=== PATIENT | female | born 1995 | race Caucasian/White ===

== ENCOUNTER 2021-12-31 14:39 | Outpatient (CLI) | payer MEDICAID, SELFPAY | END 2021-12-31 14:40 | disposition home or self-care (01) | PROVIDERS: PCP Physician Assistant Medical; Visit Provider Dermatology | DX: L63.9 Alopecia areata, unspecified (principal) | CPT/HCPCS: 84443 ==

== ENCOUNTER 2022-03-09 11:18 | Outpatient (CLI) | payer MEDICAID, SELFPAY ==
[2022-03-11 18:01] LABS: Rheumatoid Factor <10 IU/mL (0-14)
[2022-03-12 01:44] LABS: Anti-Nuclear Ab(ANA)IgG ELISA None Detected (None Detected)
[2022-03-12 18:53] LABS: HLA-B27 Negative (Negative)
== END 2022-03-09 11:19 | disposition home or self-care (01) ==
PROVIDERS: PCP Physician Assistant Medical; Visit Provider Physician Assistant Medical
DX: L50.9 Urticaria, unspecified (principal)
CPT/HCPCS: 83516; 86039; 86431; 86812

== ENCOUNTER 2022-12-16 14:15 | Outpatient (CLI) | payer MEDICAID, SELFPAY ==
[2022-12-16 18:58] LABS: Chlamydia DNA Amplified* NOT DETECTED (No Detected); GC DNA Amplified* NOT DETECTED (No Detected)
== END 2022-12-16 14:16 | disposition home or self-care (01) ==
PROVIDERS: PCP Physician Assistant Medical; Visit Provider Registered Nurse
DX: Z34.91 Encounter for supervision of normal pregnancy, unspecified, first trimester (principal); Z3A.08 8 weeks gestation of pregnancy
CPT/HCPCS: 76801; 86592; 86703; 86762; 86787; 86803; 86850; 86900; 86901; 87086; 87340; 87491; 87591

== ENCOUNTER 2023-03-09 08:04 | Outpatient (CLI) | payer MEDICAID, SELFPAY ==
--- NOTE | 2023-03-09 08:15 | CRLHL7_ITS ---
For Patients: As a result of the Century Cures Act, medical imaging exams and procedure reports are released immediately into your electronic medical record. You may view this report before your referring provider. If you have questions, please contact your health care provider. INDICATION: 2nd trimester anatomical survey. TECHNIQUE: Ultrasound OB pelvis transabdominal. Real-time alvares-scale imaging of the fetus was performed as well as color Doppler and spectral Doppler analysis of the umbilical artery. COMPARISON: None. FINDINGS: There is a single living intrauterine gestation. heart activity: Regular cardiac rate of 144 beats per minute. Orientation: Cephalic. Placenta: Anterior. No previa. Amniotic fluid volume: Normal. Deepest pocket 5 cm. Cervix: 3.2 cm. Biometry: Biparietal diameter: 20 weeks 0 days. Head circumference: 20 weeks 1 day. Abdominal circumference: 20 weeks 1 day. Femoral length: 20 weeks 2 days. The composite ultrasound gestational age is calculated at 20 weeks 3 days with an estimated sonographic due date of July 24, 2023. The weight is estimated at 337 grams, the 64th percentile. Anatomical Survey: 4 chamber heart: Visualized. Stomach: Visualized. Kidneys: Visualized. Bladder: Visualized. Spine: Visualized. Sacrum: Visualized. 4 extremities: Visualized. Cord insertion: Visualized. 3V cord: Visualized. Face: Visualized. Nose: Visualized. Lips: Visualized. Cerebellum: Visualized. Cisterna Magna: Visualized. Lateral ventricles: Visualized. IMPRESSION: 1. Single viable intrauterine . 2. No intrinsic abnormalities noted on anatomic survey. Dictated by Chivo Isbell MD @ 03/10/2023 2:39:41 PM (Electronically Signed)
== END 2023-03-09 08:05 | disposition home or self-care (01) ==
LOC: US 08:05
PROVIDERS: PCP Physician Assistant Medical; Visit Provider Registered Nurse
DX: Z34.92 Encounter for supervision of normal pregnancy, unspecified, second trimester (principal)
CPT/HCPCS: 76805

== ENCOUNTER 2023-05-20 08:01 | Outpatient (CLI) | payer MEDICAID, SELFPAY | END 2023-05-20 08:02 | disposition home or self-care (01) | PROVIDERS: PCP Physician Assistant Medical; Visit Provider Physician Assistant | DX: Z34.93 Encounter for supervision of normal pregnancy, unspecified, third trimester (principal); Z3A.30 30 weeks gestation of pregnancy | CPT/HCPCS: 82951; 82952 ==

== ENCOUNTER 2023-06-30 10:33 | Outpatient (CLI) | payer MEDICAID, SELFPAY ==
[2023-07-01 10:58] LABS: Strep B DNA Probe Negative (Negative)
[2023-07-01 11:10] LABS: Strep B Susceptibility Needed? No
== END 2023-06-30 10:34 | disposition home or self-care (01) ==
LOC: FRMREF 10:34
PROVIDERS: PCP Physician Assistant Medical; Visit Provider Obstetrics & Gynecology
DX: Z34.93 Encounter for supervision of normal pregnancy, unspecified, third trimester (principal); Z3A.36 36 weeks gestation of pregnancy
CPT/HCPCS: 87081; 87653

== ENCOUNTER 2023-07-28 16:38 | Inpatient (IN) | payer MEDICAID, SELFPAY ==
[2023-07-28] VITALS (61 sets, daily range): BP systolic 76–170; BP diastolic 44–90; PULSE 70–134; TEMP 36.4–37.1; O2SAT 83–100; BMI 34.3
[2023-07-28] MEDS: LACTATED RINGERS 1000 ML 1,000 ML 125 ML IV (17:53)
[2023-07-28] MEDS: OXYTOCIN 30 unit/500 ML in NS 30 UNIT/500 ML BAG IVPB (17:54)
[2023-07-28 19:36] LABS: Hematocrit 37.4 % (33.0-51.0); Hemoglobin* 12.4 gm/dL (12.0-16.0); Mean Corpuscular HGB Conc 33 gm/dL (32-36); Mean Corpuscular Hemoglobin 29 pg (26-34); Mean Corpuscular Volume 88 fL (80-100); Platelet Count* 190 K/uL (140-440); Red Blood Count 4.27 m/uL (4.00-5.20); White Blood Count* 12.48 K/uL (4.50-11.00)
[2023-07-28 19:38] LABS: Slide Review Reflex No
[2023-07-28] MEDS: SODIUM CHLORIDE 0.9 % (FLUSH) 10 ML SYRINGE IVF (19:42)
[2023-07-28] MEDS: LABETALOL HCL 5 MG/ML inj IVP (19:44)
[2023-07-28 19:51] LABS: Alanine Aminotransferase* 26 U/L (4-35); Aspartate Amino Transferase* 45 U/L (12-35); Blood Urea Nitrogen* 9 mg/dL (5-24); Creatinine* 0.5 mg/dL (0.5-1.5); Est. Creatinine Clearance* 138.57; Estimated Glomerular Filt Rate 131 ml/min
[2023-07-28] MEDS: MAGNESIUM IV 4 GM/100 ML PIGGYBACK IVPB (20:02)
--- NOTE | 2023-07-28 20:18 | P.LDBA_ITS ---
Subjective History of Present Illness Date Seen: 07/28/23 Narrative: Patient is being admitted to Labor and Delivery for elective IOL. She is a 28 year old at 40 0/7 weeks gestation. Her full history and physical was dictated by Candida Mcmanus on 07/08/23. Please see this for details. Patient had planned elective IOL that unfortunately had to be bumped a couple of times earlier this week due to staffing at labor and delivery. Patient was admitted this afternoon for elective IOL. On her last clinic visit she had slightly higher elevated BP that did not met criteria for GHTN, this was the first time she had elevated blood pressures in her . Upon arrival to labor and delivery blood pressures slightly higher but again not diagnostic. At this moment, patient with severely elevated blood pressures that persisted after adequate monitoring and needed to be treated with IV Labetalol. Patient denied [employer] irritability symptoms and HELLP labs are currently in process. Specific Issues/Plans G 3 P 2001 : [place]. 2 boys at home: Juan M Brooks MaterniT 21 neg, girl! AFP: Patient declines. Interested in 39 wk elective IOL 1. (Distant) Family history of [place] Syndrome in mom's cousin's child. Declines referral to genetic counselor. 2. Varicella nonimmune. Recommend vaccination . 3. 1 hour GTT: 140. Discussed and patient opted for 3 hour GTT: all normal COVID: Not vaccinated. Recommended. Flu shot: 01/11/23 Tdap:05/20/23 OB - Problem Based A/P Additional Plan (1) Gestational hypertension: Problem details: Severe GHTN, diagnosed intrapartum Status: Acute (2) : Status: Acute Plan 1. IOL: originally elective, patient now meets criteria for severe gestational hypertension-medically indicated. IV Oxytocin ongoing, plan to AROM LESLEY. 2. Severe gestational hypertension: By blood pressure criteria, received one dose of labetalol 20mg, will continue close monitoring, will treat severely elevated blood pressures as needed. Magnesium sulfate infusion has started, will continue throughout labor process and 24 hours post . HELLP labs every 6 hours. Close monitoring of I/O, magnesium toxicity. 3. Continuous monitoring. 4. Patient plans to get epidural. 5. GBS negative, no antibiotics indicated. OB Exam Physical Exam Vital signs: Temp Pulse BP Pulse Ox 98.8 F 90 129/84 100 07/28/23 17:00 07/28/23 20:13 07/28/23 20:13 07/28/23 20:15 Detailed Labor and Delivery Exam Patient Gravid: Yes Dilation (cm): 2 Effacement (%): 75 Consistency: soft Contraction Frequency: Irregular Tachysystole: No Contraction intensity: Mild Fetus (Single) Station: -2 Amniotic Membrane Status: intact Heart Rate Baseline: 135 Monitor Accelerations: Present Monitor Decelerations: None [employer] Variability: Moderate (6-25)
[2023-07-28] MEDS: MAGNESIUM Infusion 40 GM/1,000 ML IV.SOLN IVPB (20:35)
[2023-07-28 20:49] LABS: Total Protein Urine 17 mg/dL
[2023-07-28 20:50] LABS: Creatinine Urine 21.2 mg/dL
[2023-07-28] MEDS: ROPIVACAINE 0.2% 100 ml 100 ML 12 MG EPIDURAL (22:46)
--- NOTE | 2023-07-28 22:52 | P.ANBPRC_ITS ---
[facility] Medical History Raynaud's phenomenon ?I73.00 - Raynaud's syndrome without gangrene (ICD-10) Normal spontaneous vaginal delivery ?O80 - Encounter for full-term uncomplicated delivery (ICD-10) No active medical problems Surgical History History of third molar tooth extraction ?K08.409 - Partial loss of teeth, unspecified cause, unspecified class (ICD- 10) Family History Family/Other Multiple sclerosis Family/Other Seizure disorder Paternal Grandfather Pancreatic cancer Maternal Grandfather Polymyalgia rheumatica Social History Narrative: , 2 kids, realtor. Non smoker What is your current living situation?: I presently have a place to live Problems where you live: no known problems In the past 12 months, utilities in danger of being shut off: no In past 12 months, lack of transportation kept you from medical appts, meetings, work, or getting things needed for daily living: no In the past 12 mos, have been you worried that your food would run out before you had money to buy more?: never true In the past 12 mos, the food you bought just didn't last and you didn't have money to buy more?: never true Smoking Status: Never smoker How often does anyone, including family, friends and others, physically hurt you : never How often does anyone, including family, friends and others, insult or talk down to you: never How often does anyone, including family, friends and others, threaten you with harm: never How often does anyone, including family, friends and others, scream or curse at you: never Little interest or pleasure in doing things: not at all Feeling down, depressed, or hopeless: not at all Meds Home Medications and Allergies Home Medications Medication Instructions Recorded Confirmed Type cetirizine 10 mg tablet 10 mg PO .Daily as needed PRN 03/09/22 07/28/23 History Allergies Allergy/AdvReac Type Severity Reaction Status Date / Time amoxicillin Allergy Mild Rash/hives Verified 07/21/23 08:56 cephalexin Allergy Mild Rash/hives Verified 07/21/23 08:56 Results Labs Labs: Laboratory Results - last 24 hr 07/28/23 07/28/23 19:15 20:09 WBC 12.48 H RBC 4.27 Hgb 12.4 Hct 37.4 MCV 88 MCH 29 MCHC 33 Plt Count 190 BUN 9 Creatinine 0.5 Estimated Creat Clear 138.57 Estimated GFR 131 AST 45 H ALT 26 Urine Creatinine 21.2 Protein/Creatinin Ratio 0.80 H Urine Total Protein 17 Blood Type A Positive Antibody Screen NEGATIVE Vital Signs Vital Signs: Last Vital Signs Temp 98.2 F 07/28/23 21:15 Pulse 100 07/28/23 22:51 BP 115/55 L 07/28/23 22:51 Pulse Ox 100 07/28/23 22:19 Weight: 87.952 kg Height: 160.02 cm Anesthesia Procedures Epidural Insertion Patient Location: OB Start Time: 09:45 Stop Time: 10:45 Start Date: 07/28/23 Stop Date: 07/28/23 Reason for Block: procedure for pain Patient Position: sitting Performed By: Cassy Ortega Preanesthetic Checklist: IV checked, risks and benefits discussed, monitors and equipment checked, timeout performed and anesthesia consent Prep: chlorhexidine gluconate Monitoring: blood pressure monitoring, continuous pulse oximetry and heart rate Approach: midline Vertebral Space: lumbar (1-5) Epidural Technique: GLORIA saline Needle Type: Tuohy needle Injection Technique: continuous catheter Needle gauge: 17 Needle Length (cm): 10 cm Needle Insertion Depth (cm): 6 Catheter Gauge: 19 Catheter Type: multi-orifice Catheter at skin depth (cm): 12 Test Dose Result: negative and lidocaine 1.5% with epinephrine 1 to 200,000 Events: other (Gave 5ml of Bupivacaine 0.25%, patient reported adequate pain relief.)
[2023-07-28] MEDS: PHENYLEPHRINE 100 MCG/ML SYRINGE IVP (23:12)
[2023-07-28] MEDS: LACTATED RINGERS 1000 ML 1,000 ML 925 ML IV (23:40)
[2023-07-29] VITALS (100 sets, daily range): BP systolic 95–134; BP diastolic 55–84; PULSE 69–113; RESP 12–18; TEMP 36.4–36.8; O2SAT 96–100
[2023-07-29 01:09] LABS: Hematocrit 34.3 % (33.0-51.0); Hemoglobin* 11.4 gm/dL (12.0-16.0); Mean Corpuscular HGB Conc 33 gm/dL (32-36); Mean Corpuscular Hemoglobin 29 pg (26-34); Mean Corpuscular Volume 88 fL (80-100); Platelet Count* 184 K/uL (140-440); White Blood Count* 14.05 K/uL (4.50-11.00)
[2023-07-29 01:33] LABS: Slide Review Reflex No
[2023-07-29 01:53] LABS: Creatinine* 0.4 mg/dL (0.5-1.5); Est. Creatinine Clearance* 173.21; Estimated Glomerular Filt Rate 138 ml/min
[2023-07-29 01:54] LABS: Alanine Aminotransferase* 22 U/L (4-35); Aspartate Amino Transferase* 38 U/L (12-35); Blood Urea Nitrogen* 7 mg/dL (5-24); Magnesium* 3.9 mg/dL (1.5-2.6)
[2023-07-29] MEDS: LACTATED RINGERS 1000 ML 1,000 ML 75 ML IV (02:23)
--- NOTE | 2023-07-29 05:21 | P.OBPN_ITS ---
Subjective Date Seen: 07/29/23 Narrative: Okay, tired Objective Vital Signs: Last Vital Signs Temp 98.3 F 07/29/23 03:07 Pulse 112 H 07/29/23 05:11 BP 109/63 07/29/23 05:11 Pulse Ox 99 07/29/23 03:56 Pelvic Exam Dilation (cm): 9-10 Effacement (%): 90 Station: 0 Contractions Monitor mode: External Contraction pattern: Regular Contraction intensity: Strong/Firm Pitocin Rate (mU/min): 21 Assessment Assessment: induction ongoing Station: 0 Amniotic Membrane Status: AROM Status: Category l Heart Rate Baseline: 140 [facility] Variability: Moderate (6-25) Monitor Accelerations: Present Monitor Decelerations: None Labor Progress: Labor was progressing well until second stage. AROM was completed at around 11pm last night. I checked her at around 1 am and she was found 7cm, then again at 2:30am and she was 8-9 very stretchy cervix. Patient was experiencing lots of rectal pressure and at around 4am cervix was identified as a rim mostly at her left side, she has great pushing efforts and it felt like I was able to reduce cervix but when Farzaneh discontinued pushing efforts cervix would slip right back. We attempted pushing for about 45 minutes, oxytocin increased during this process, regular and strong uterine contractions palpated, maternal pushing efforts effective. I had been suspecting asynclitism, bedside US was then performed and baby found LOT. I explained findings to Farzaneh and recommended an attempt at manual rotation, Farzaneh verbally consented and I was able to introduce my entire hand and attempted to lift vertex a bit from the pelvis and do a counterclockwise rotation, NO movement. We then attempted to push on her left side, NO additional movement. At this point I have explained to Farzaneh and family, that I am concerned about asynclitism, discussed that sometimes babies are malpositioned and they are harder to push out and it takes us longer to do so as well. I explained that in theory she could still push for 2 more hours and comply with guidelines. Medically she has been stable and baby has been tolerating IOL process very well as well. Farzaneh is tired and asks for my opinion, at this time I recommend a delivery at this time. At this time, both she and baby are stable, this could be very different in 2 hours and I have attempted to control all of the factors (contraction frequency and intensity, patient has a proven pelvis, manual rotation, pushing in different positions) and baby does not move at all. Patient prefers to proceed with delivery at this time. We reviewed how procedure is performed, risks of surgery such as bleeding and needing a blood transfusion, Farzaneh accepts blood transfusions, risk of infection, damage to nearby organs, blood clots. Discussed interventions to decrease risks such as antibiotics, SCDs. Discussed how care differs from a vaginal delivery, usual recovery. Reviewed with her that we would plan to keep her inpatient for at least 3 days. Reviewed continuing magnesium sulfate infusion for 24 hours after delivery and to complete 24 hours of observation at least, after d/c of this medication. Informed consent reviewed and signed by patient. Plan Plan: delivery due to arrest of descent, ROT position.
[2023-07-29] MEDS: ROPIVACAINE 0.2% 100 ml 100 ML 12 MG EPIDURAL (05:26)
[2023-07-29] MEDS: AZITHROMYCIN 500 MG in 0.9 % SODIUM CHLORIDE 250 ml 250 ML 255 MG IVPB (05:41)
[2023-07-29] MEDS: CEFAZOLIN 2 GM INJ IVP (06:25)
[2023-07-29] MEDS: miSOPROStoL 800 MCG/4 TABLET PR (06:47)
[2023-07-29] MEDS: LACTATED RINGERS 1000 ML 1,000 ML 50 ML IV (07:32)
--- NOTE | 2023-07-29 07:44 | PM.OBPRCCS ---
Procedure Date of procedure: 07/29/23 Pre-op diagnosis: Arrest of descent, preeclampsia with severe features Post-op diagnosis: same (same, hemorrhage) Procedure Done: Global Will [facility] bill your pro fee for this procedure?: Yes Blood Loss Measurement Type: QBL (6661) Bakri Used: No IV fluids (mL): 2,200 Urine Output Comment: Concentrated Surgeon: Candida Canas MD Anesthesia Type: Epidural Findings: FINDINGS: Live-born female , LOT presentation, Apgars 8 and 9 at 1 and 5 minutes respectively. Two nuchal cords. weight 8 lb 5 oz. Hysterotomy extension towards the right lower uterine segment of about 3cm, broad ligament intact. Procedure Name: Primary Low Transverse Section Procedure Description: PROCEDURE: After obtaining informed consent, the patient was taken to the operating room where epidural anesthesia was obtained and found to be adequate. She was prepared and draped in the normal sterile fashion in the dorsal supine position with a leftward tilt. A Pfannenstiel skin incision was made with a scalpel about 2 cm above symphysis pubic bone, 10-12 cm in length. This incision was carried down to the underlying layer of fascia with the Bovie and scalpel. The fascia was incised in the midline and the incision extended laterally. The rectus muscles were then in the midline. Bladder flap performed with Metzenbaum scissors. The Ray O retractor was then placed into the incision. The lower uterine segment was then incised in a transverse fashion with the scalpel. Upon entry into the uterus, clear amniotic fluid was noted. The uterine incision was extended cephalo caudally with blunt finger fractionation. The 's head was delivered atraumatically, followed by the remainder of the 's body. The nose and mouth were suctioned with the bulb suction. The cord was doubly clamped and cut, and the infant was handed off the field to [facility] for evaluation. The placenta was delivered spontaneously with umbilical cord traction and fundal massage. The uterus was cleared of all clots and debris. Multiple ring forceps placed to aid in hemostasis from bleeding right uterine artery. The uterine incision was reapproximated in a running locking fashion with a 0 Vicryl suture. A 2nd layer of the same suture was used to imbricate in horizontal fashion. Bleeding vessels managed with 0 Vicryl. Uterine atony treated as well with IV Oxytocin, rectal Cytotec 800mcg and 1 dose of IM Hemabate. The gutters were inspected and cleared of blood clot. All instruments and retractors were removed. Peritoneum approximated with Vicryl 3-0 in a continuous fashion. The subfascial tissues were carefully inspected and hemostasis assured. The fascia was reapproximated in a running fashion with a looped 0 Vicryl suture. The subcutaneous tissues were inspected and hemostasis was assured. The subcutaneous fat layer was reapproximated with interrupted sutures of 3-0 Vicryl. The skin was closed in a subcuticular fashion with 4-0 Monocryl. LiquiBand and dressing were applied. The patient tolerated the procedure well. Sponge, lap, needle, and instrument counts were reported as correct x2. The patient was taken to the recovery room, awake, and in stable condition. She did receive 2 grams of IV Ancef and 500mg Azithromycin preoperatively. Patient also received 1g of TXA after umbilical cord clamp. Complications: hemorrhage due to hysterotomy extension and uterine atony. Pathology: specimen obtained, sent to pathology (Placenta) Surgery Debrief Performed: Yes Condition: stable Disposition: floor Infant total score - 1 minute: 8 total score - 5 minute: 9
[2023-07-29] MEDS: LACTATED RINGERS 1000 ML 1,000 ML 125 ML IV ×2 (07:45→14:20)
--- NOTE | 2023-07-29 08:11 | W.PM.NB ---
Nerve Block Nerve Block Time Seen by Provider: 07:55 Date Seen: 06/05/23 Type of block requested by surgeon for post-operative analgesia: TAP Side: bilateral Time out performed: Yes Verification of patient name: Yes Verification of date of : Yes Site marking: site marked Name of person performing procedure: Nikita Cho Continuous monitoring Was continuous monitoring of O2 sat, B/P, property assessment monitor, recorded every 15 minutes?: Yes Procedure Checklist: sterile prep, needles and gloves Ultrasound guided. Images saved: Yes Medications given in 5ml increments after negative aspiration: Marcaine %: 0.25 mL: 30 Needle gauge: 20 and Exparel mL: 10 Needle gauge: 20 Patient tolerated procedure well: Yes Block Charges Block Charge (with Pro Fee): TAP Bilateral Use of Ultrasound Machine for Block: Yes- US Guidance/pain block
--- NOTE | 2023-07-29 08:13 | W.ANESCHARGE ---
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
[2023-07-29] MEDS: LOPERAMIDE HCL 2 MG CAPSULE 4 MG PO (08:15)
[2023-07-29 09:47] LABS: Hematocrit 35.3 % (33.0-51.0); Hemoglobin* 11.7 gm/dL (12.0-16.0); Mean Corpuscular HGB Conc 33 gm/dL (32-36); Mean Corpuscular Hemoglobin 29 pg (26-34); Mean Corpuscular Volume 88 fL (80-100); Platelet Count* 200 K/uL (140-440); Red Blood Count 4.01 m/uL (4.00-5.20); White Blood Count* 24.31 K/uL (4.50-11.00)
[2023-07-29 09:59] LABS: Alanine Aminotransferase* 22 U/L (4-35); Aspartate Amino Transferase* 40 U/L (12-35); Blood Urea Nitrogen* 5 mg/dL (5-24); Creatinine* 0.4 mg/dL (0.5-1.5); Est. Creatinine Clearance* 173.21; Estimated Glomerular Filt Rate 138 ml/min
[2023-07-29 10:04] LABS: Slide Review Reflex No
[2023-07-29] MEDS: KETOROLAC 30 MG/ML inj IVP ×2 (13:27→19:18)
[2023-07-29] MEDS: ACETAMINOPHEN 500 MG TABLET 1000 MG PO ×2 (13:27→19:17)
[2023-07-29] MEDS: MAGNESIUM Infusion 40 GM/1,000 ML IV.SOLN IVPB (14:36)
[2023-07-29 15:32] LABS: Hematocrit 29.2 % (33.0-51.0); Hemoglobin* 9.8 gm/dL (12.0-16.0); Mean Corpuscular HGB Conc 34 gm/dL (32-36); Mean Corpuscular Hemoglobin 30 pg (26-34); Mean Corpuscular Volume 88 fL (80-100); Platelet Count* 186 K/uL (140-440); Red Blood Count 3.32 m/uL (4.00-5.20); White Blood Count* 20.45 K/uL (4.50-11.00)
[2023-07-29 15:36] LABS: Slide Review Reflex No
[2023-07-29 16:27] LABS: Aspartate Amino Transferase* 32 U/L (12-35); Creatinine* 0.4 mg/dL (0.5-1.5); Est. Creatinine Clearance* 173.21; Estimated Glomerular Filt Rate 138 ml/min
[2023-07-29 16:28] LABS: Alanine Aminotransferase* 20 U/L (4-35); Blood Urea Nitrogen* 3 mg/dL (5-24)
[2023-07-29 21:38] LABS: Hematocrit 28.2 % (33.0-51.0); Hemoglobin* 9.3 gm/dL (12.0-16.0); Mean Corpuscular HGB Conc 33 gm/dL (32-36); Mean Corpuscular Hemoglobin 29 pg (26-34); Mean Corpuscular Volume 88 fL (80-100); Platelet Count* 184 K/uL (140-440); White Blood Count* 18.22 K/uL (4.50-11.00)
[2023-07-29 21:43] LABS: Slide Review Reflex No
[2023-07-29 22:09] LABS: Alanine Aminotransferase* 19 U/L (4-35); Aspartate Amino Transferase* 33 U/L (12-35); Blood Urea Nitrogen* 4 mg/dL (5-24); Creatinine* 0.5 mg/dL (0.5-1.5); Est. Creatinine Clearance* 138.57; Estimated Glomerular Filt Rate 131 ml/min
[2023-07-29 22:17] LABS: Magnesium* 5.4 mg/dL (1.5-2.6)
[2023-07-30] VITALS (15 sets, daily range): BP systolic 101–131; BP diastolic 64–84; PULSE 71–81; RESP 16–18; TEMP 36.3–36.7; O2SAT 96–100
[2023-07-30] MEDS: KETOROLAC 30 MG/ML inj IVP ×3 (01:33→13:15)
[2023-07-30] MEDS: ACETAMINOPHEN 500 MG TABLET 1000 MG PO ×3 (01:33→14:00)
[2023-07-30] MEDS: SODIUM CHLORIDE 0.9 % (FLUSH) 10 ML SYRINGE IVF ×2 (01:35→20:17)
[2023-07-30 03:28] LABS: Hematocrit 27.3 % (33.0-51.0); Hemoglobin* 9.1 gm/dL (12.0-16.0); Mean Corpuscular HGB Conc 33 gm/dL (32-36); Mean Corpuscular Hemoglobin 30 pg (26-34); Mean Corpuscular Volume 90 fL (80-100); Platelet Count* 184 K/uL (140-440); Red Blood Count 3.05 m/uL (4.00-5.20); White Blood Count* 16.31 K/uL (4.50-11.00)
[2023-07-30 03:29] LABS: Slide Review Reflex No
[2023-07-30 03:41] LABS: Alanine Aminotransferase* 18 U/L (4-35); Aspartate Amino Transferase* 35 U/L (12-35); Blood Urea Nitrogen* 3 mg/dL (5-24); Creatinine* 0.5 mg/dL (0.5-1.5); Est. Creatinine Clearance* 138.57; Estimated Glomerular Filt Rate 131 ml/min
[2023-07-30 03:50] LABS: Magnesium* 5.6 mg/dL (1.5-2.6)
[2023-07-30] MEDS: DOCUSATE SODIUM 100 MG CAPSULE PO (08:14)
--- NOTE | 2023-07-30 08:44 | P.OBPN_ITS ---
OB - PN:Subj Subjective Time Seen by Provider: 08:30 Date Seen: 07/30/23 Patient comments OB post-: no complaints, pain well controlled and tolerating diet [place] infant status: bottle and doing well Narrative: The patient feels well this morning. The magnesium sulfate infusion was discontinued at 6:30 a.m. Her pain is well controlled on Toradol and Tylenol. She still has little numbness that wraps around to her left buttocks, which she attributes to the TAP block. She is looking forward to doing some walking today. OB - PN: Obj Exam Physical Exam: Vital signs: Temp Pulse Resp BP Pulse Ox O2 Del Method 97.3 F L 81 18 115/78 99 Room Air 07/30/23 07:53 07/30/23 07:53 07/30/23 07:53 07/30/23 07:53 07/30/23 07:53 07/30/23 07:53 Constitutional: Constitutional: no acute distress Routine HEENT Exam: Head: Present normal inspection Routine Respiratory Exam: Comments: Normal respiratory effort. Routine Abdominal Exam: Abdominal: Present soft; Absent tenderness Fundus: Present firm Routine Extremities Exam: Extremities: Present pedal edema (trace); Absent calf tenderness Detailed Lower Extremity Exam: Hip: bilateral: normal inspection Routine Neurological Exam: Neurological: Present oriented X3 Routine Psychiatric Exam: Psychiatric: Present normal affect Wound Management: Examination: Present clean, dry and intact; Absent erythematous or tenderness Urinary Catheter Management: Urethral: Cath placed during this visit: yes, but has since been removed by the nurse Reason for continuing: decision to DC catheter Removal date: 07/30/23 Removal time: 06:00 OB - PN: Obj Data Labs Labs: Laboratory Results - last 24 hr 07/29/23 07/29/23 07/29/23 09:30 15:17 21:25 WBC 24.31 H 20.45 H 18.22 H RBC 4.01 3.32 L 3.20 L Hgb 11.7 L 9.8 L 9.3 L Hct 35.3 29.2 L 28.2 L MCV 88 88 88 MCH 29 30 29 MCHC 33 34 33 Plt Count 200 186 184 BUN 5 3 L 4 L Creatinine 0.4 L 0.4 L 0.5 Estimated Creat Clear 173.21 173.21 138.57 Estimated GFR 138 138 131 Magnesium 5.0 H* 5.4 H* AST 40 H 32 33 ALT 22 20 19 04/19/24 03:25 WBC 16.31 H RBC 3.05 L Hgb 9.1 L Hct 27.3 L MCV 90 MCH 30 MCHC 33 Plt Count 184 BUN 3 L Creatinine 0.5 Estimated Creat Clear 138.57 Estimated GFR 131 Magnesium 5.6 H* AST 35 ALT 18 OB - PN: A/P Delivery Assessment and Plan (1) Gestational hypertension: Problem details: Severe GHTN, diagnosed intrapartum Status: Acute Assessment and Plan: Continue to monitor BP. Discontinue serial labs. Plan day: 1 Plan: routine care
[2023-07-30] MEDS: OXYCODONE 5 MG TABLET PO (12:30)
[2023-07-30 17:17] LABS: Rapid Plasma Reagin (RPR) Non Reactive (Non Reactive)
[2023-07-30] MEDS: IBUPROFEN 600 MG TABLET PO (20:16)
[2023-07-31] MEDS: ACETAMINOPHEN 500 MG TABLET 1000 MG PO ×2 (00:48→06:18)
[2023-07-31 01:02] VITALS: BP 111/74; PULSE 74; RESP 16
[2023-07-31] MEDS: IBUPROFEN 600 MG TABLET PO ×2 (02:47→11:53)
[2023-07-31 04:45] VITALS: BP 122/77; PULSE 70; RESP 16; TEMP 36.6; O2SAT 100
[2023-07-31 08:36] VITALS: BP 121/78; PULSE 81; RESP 16; TEMP 36.8; O2SAT 99
[2023-07-31] MEDS: DOCUSATE SODIUM 100 MG CAPSULE PO (08:45)
--- NOTE | 2023-07-31 12:58 | P.DS_ITS ---
DS: Providers Provider Time Seen by Provider: 09:00 Date Seen: 07/31/23 Date of admission: 07/28/23 16:38 Primary care physician: Paula Huang PA-C Admitting Clinician: Carol Canas MD Attending Physician on discharge: Carol Canas MD Date of Discharge: 07/31/23 DS: Diagnosis Discharge Diagnosis (1) Anxiousness: Status: Acute (2) Severe pre-eclampsia: Status: Acute (3) Acute blood loss anemia: Status: Acute Exam Narrative: Exam Narrative: Physical exam: General: No acute distress Psych: Alert and oriented x4, full affect HEENT: Normocephalic, atraumatic Neck: No cervical adenopathy, no thyromegaly Heart: Regular rate and rhythm, no murmur rub or gallop Lungs: Clear to auscultation bilaterally Abdomen: Normoactive bowel sounds, soft, no tenderness, rebound, or guarding Incision: Appropriately tender to palpation. Clean, dry, and intact. No erythema, induration, or abnormal discharge/breakdown Skin: No lesions or rashes Lower extremities: No edema or erythema Pelvic exam: Scant blood on pad Const: Vital Signs, click to edit/add: Vital Signs - 24 hr 07/30/23 15:21 07/30/23 20:16 07/30/23 20:23 Temperature 98.1 F 97.8 F 97.8 F Pulse Rate [Pulse Oximeter] 71 75 Respiratory Rate 16 16 Blood Pressure [Ri ght Arm] 131/80 131/84 Pulse Oximetry 100 100 Oxygen Delivery Me thod Room Air Room Air 07/31/23 01:02 07/31/23 04:45 07/31/23 08:36 Temperature 97.9 F 98.3 F Pulse Rate [Pulse Oximeter] 74 70 81 Respiratory Rate 16 16 16 Blood Pressure [Ri ght Arm] 111/74 122/77 121/78 Pulse Oximetry 100 99 Oxygen Delivery Me thod Room Air Room Air OB - DS: Summary Hospital Course Hospital Course: The patient is a 28 year old G 3 P 2002 at 40.0 weeks gestation that was admit marco a to the Center on 07/28/23 for elective induction. Her intrapartum course was complicated by severe preeclampsia. She had a primary delivery due to arrest of descent. delivery was complicated by hemorrhage due to hysterotomy extension and uterine atony. She delivered a viable female infant. She is . the patient has done well. Overnight patient had no complaints. Her pain is well controlled on oral pain medications. She is tolerating a regular diet. She has passed flatus. She is ambulating without difficulty. Lochia is scant. She is urinating without de jesus. Patient denies chest pain, SOB, n/v, headache, RUQ pain, vision changes, dizziness. Postoperative/post delivery Review: - Admitted for: Elective induction of labor at 40 weeks - Surgical procedure: Primary delivery due to arrest of descent - Skin incision: Pfannenstiel - Closure: Suture - Quantitative blood loss: 1159 mL - Intraoperative Complications: hemorrhage due to hysterotomy extension and uterine atony Pre-Eclampsia with severe features - Based on severe ranging BP requiring IV antihypertensive - BPs overnight: 100-130/60-80s - Symptoms: Asymptomatic - Magnesium: s/p 24 hours of magnesium sulfate - IV antihypertensives: currently unindicated - Pre-eclampsia labs on 07/30/23: Hgb 9.1 Plt 184 Cr 0.5 ALT 35 AST 18 Acute blood loss anemia - Urine output: adequate - Preop/pre delivery H/H: 12.4/190 - Postop/post delivery H/H: 9.1/184 Postoperative care: - Diet: Advance as tolerated - Fluid: Encourage oral intake - Activity: Encourage ambulation and incentive spirometry - Pain: Acetaminophen, Ibuprofen, and oxycodone - DVT prophylaxis: SCDs and TEDs when not ambulating. Discharge Planning - Follow up in 5-7 days for incision check and/or staple removal/ BP check in clinic - Follow Up: follow-up at 2 weeks and 6 weeks in clinic Dispo: Patient is POD#2. Need the following milestones: none. Anticipate discharge POD#2. Peripartum Data Procedures: Procedures Operation Date: 07/29/23 06:15 Actual Procedure Side Surgeon p Primary Section Not Applicable Carol Canas MD Infant Gender: Female Time Spent with Patient Time attestation: Total time spent providing and/or coordinating discharge services: Discharge Plan Discharge Disposition: Home, Self-Care Date of Admission: 07/28/23 16:38 Attending Provider on Discharge: Lala Alfredo Primary Care Provider: Lybarger,Paula J Condition: Stable Anticipated Discharge Date/Time: 07/31/23 10:16 Discharge Medications: New acetaminophen 500 mg Tablet 1,000 mg PO Q6H PRN (Reason: pain/fever) 30 Days Qty: 60 0RF docusate sodium 100 mg Capsule 100 mg PO DAILY 30 Days Qty: 30 0RF ibuprofen 600 mg Tablet 600 mg PO Q6H PRN (Reason: Pain) 30 Days Qty: 60 0RF Lanolin (HPA) 100 % Cream 1 applic topical Q1H PRNQty: 21 0RF Poly-Iron 150 Forte 150-25-1 mg-mcg-mg Capsule 1 cap PO Q OTHER DAY 30 Days Qty: 15 0RF simethicone 80 mg Tablet,Chewable 80 - 160 mg PO Q4H PRN (Reason: Gas) 30 Days Qty: 60 0RF oxycodone 5 mg Tablet 5 mg PO Q6H PRN (Reason: Pain) 14 Days Qty: 20 0RF Continued cetirizine 10 mg tablet 10 mg PO .Daily as needed PRN Discharge Orders: Discharge Order (Routine); Ordered 07/31/23 Ordered By: Lala Alfredo Patient Education: (DC), OB /Bottle Feeding Activity Level: Activity as Tolerated Discharge Diet: Regular Follow Up Appointments: Paula Huang, PAKelsieC [Primary Care Provider] - Forms: MyHealth Info Instructions Discharge Comments: - Follow up in 3-5 days for incision check and BP check in clinic - Follow Up: follow-up at 2 weeks and 6 weeks in clinic
--- NOTE | 2023-08-12 06:52 | P.NB_ITS ---
Nerve Block Nerve Block Time Seen by Provider: 07:55 Date Seen: 07/29/23 Type of block requested by surgeon for post-operative analgesia: TAP Side: bilateral Time out performed: Yes Verification of patient name: Yes Verification of date of : Yes Site marking: site marked Name of person performing procedure: Chirag Wang Continuous monitoring Was continuous monitoring of O2 sat, B/P, property assessment monitor, recorded every 15 minutes?: Yes Procedure Checklist: sterile prep, needles and gloves Ultrasound guided. Images saved: Yes Medications given in 5ml increments after negative aspiration: Marcaine %: 0.25 mL: 30 Needle gauge: 20 and Exparel mL: 10 Needle gauge: 20 Patient tolerated procedure well: Yes Additional comments: Injected in 5ml increments after negative aspiration Block Charges Block Charge (with Pro Fee): TAP Bilateral Use of Ultrasound Machine for Block: Yes- US Guidance/pain block
== END 2023-07-31 11:55 | disposition home or self-care (01) | DRG 787 ==
PROVIDERS: Admitting Provider Obstetrics & Gynecology; PCP Physician Assistant Medical; Visit Provider Obstetrics & Gynecology
PROC: 10D00Z1 Extraction of Products of Conception, Low, Open Approach (ICD-10-PCS; CPT 59514; principal; 2023-07-29 06:00)
DX: O14.14 Severe pre-eclampsia complicating childbirth (principal); D62 Acute posthemorrhagic anemia; Z37.0 Single live birth; O72.1 Other immediate postpartum hemorrhage; O90.81 Anemia of the puerperium; O32.4XX0 Maternal care for high head at term, not applicable or unspecified; G89.18 Other acute postprocedural pain; Z3A.40 40 weeks gestation of pregnancy
CPT/HCPCS: 01967; 01968; 36415; 64488; 76942; 82565; 82570; 83735; 84156; 84450; 84460; 84520; 85027; 86592; 86850; 86900; 86901; 88307; 99140; A9270; C9290; J0456; J0665; J0690; J1885; J2210; J2274; J2371; J2405; J2590; J2795; J3010; J3475; J7050; J7120

== ENCOUNTER 2023-08-01 01:03 | Emergency (ER) | payer MEDICAID, SELFPAY ==
[2023-08-01 01:12] VITALS: BP 155/86; PULSE 75; RESP 16; TEMP 36.3; O2SAT 100; BMI 31.8
--- NOTE | 2023-08-01 01:36 | ED_ITS ---
HPI - General Adult General Chief complaint: Post OB/Post- Complication Stated complaint: postop OB Time Seen by Provider: 08/01/23 01:04 History of Present Illness HPI narrative: patient post C section on 07/28. during labor she had some high BPs and was adviseed to monitor self at home. today she had 3 high BP readings in a row 150s/90s at rest and was concenred, called OB and was advised to come be checked out. no hx of related hypertension, uncomplicated c section. denies any headache, vision changes, or swelling. 28-year-old woman presenting to emergency department concern of elevated blood pressure. Blood pressure were 3 high readings in a row around 150s over 90s. She is having had a 3 days ago. I review recorded vitals that I can access and do not see excessively high blood pressures however Farzaneh reports during delivery/peripartum blood pressures went up I believe 161/83 ultimately was diagnosed with preeclampsia and treated with magnesium. She is not having any headache or shortness of breath or visual changes. No unusual swelling/edema. Related Data Home Medications Medication Instructions Recorded Confirmed cetirizine 10 mg tablet 10 mg PO .Daily as needed PRN 03/09/22 07/28/23 Previous Rx's Medication Instructions Recorded acetaminophen 500 mg tablet 1,000 mg (2 x 500 mg) PO Q6H PRN 07/31/23 pain/fever 30 days #60 tabs docusate sodium 100 mg capsule 100 mg PO DAILY 30 days #30 caps 07/31/23 ibuprofen 600 mg tablet 600 mg PO Q6H PRN Pain 30 days #60 07/31/23 tabs iron polysacch cplx 150 mg 1 cap PO Q OTHER DAY 30 days #15 07/31/23 iron-vit B12 25 mcg-folic acid 1 caps mg capsule (Poly-Iron) modified lanolin 100 % topical 1 applic topical Q1H PRN #21 grams 07/31/23 cream (Lanolin (HPA)) oxycodone 5 mg tablet 5 mg PO Q6H PRN Pain 14 days #20 07/31/23 tabs simethicone 80 mg chewable tablet 80 - 160 mg (1 - 2 x 80 mg) PO Q4H 07/31/23 PRN Gas 30 days #60 tabs nifedipine 30 mg tablet,extended 30 mg PO DAILY #30 tabs 04/21/24 release Allergies Allergy/AdvReac Type Severity Reaction Status Date / Time amoxicillin Allergy Mild Rash/hives Verified 07/21/23 08:56 cephalexin Allergy Mild Rash/hives Verified 07/21/23 08:56 Review of Systems Status of ROS: Reports: 6 or more systems reviewed and unremarkable except as noted in History and below PFSH PFS Medical History Raynaud's phenomenon ?I73.00 - Raynaud's syndrome without gangrene (ICD-10) Normal spontaneous vaginal delivery ?O80 - Encounter for full-term uncomplicated delivery (ICD-10) No active medical problems Surgical History History of third molar tooth extraction ?K08.409 - Partial loss of teeth, unspecified cause, unspecified class (ICD- 10) Family History Family/Other Multiple sclerosis Family/Other Seizure disorder Paternal Grandfather Pancreatic cancer Maternal Grandfather Polymyalgia rheumatica Social History Narrative: , 2 kids, realtor. Non smoker What is your current living situation?: I presently have a place to live Problems where you live: no known problems In the past 12 months, utilities in danger of being shut off: no In past 12 months, lack of transportation kept you from medical appts, meetings, work, or getting things needed for daily living: no In the past 12 mos, have been you worried that your food would run out before you had money to buy more?: never true In the past 12 mos, the food you bought just didn't last and you didn't have money to buy more?: never true Smoking Status: Never smoker Do you use any of these nicotine containing products: None Second hand tobacco smoke exposure: No How often do you have a drink containing alcohol: never How often do you have six or more drinks on one occasion: Never AUDIT-C Alcohol total score: 0 How often does anyone, including family, friends and others, physically hurt you : never How often does anyone, including family, friends and others, insult or talk down to you: never How often does anyone, including family, friends and others, threaten you with harm: never How often does anyone, including family, friends and others, scream or curse at you: never Little interest or pleasure in doing things: not at all Feeling down, depressed, or hopeless: not at all service: No Exam Narrative: Exam Narrative: Very pleasant. Of good energy. NAD. Skin is warm and dry. Lungs are clear. Breathing easily. Heart in regular rate and rhythm. Lower extremities maybe with trace dependent edema. Moving all extremities without difficulty. 2-beat clonus. 2+ DTRs at the patellar tendon 1+ at the brachioradialis. Const: Vital Signs, click to edit/add: Vital Signs - 24 hr 08/01/23 01:12 08/01/23 02:18 Temperature 97.3 F L Pulse Rate [Pulse Oximeter] 75 70 Respiratory Rate 16 16 Blood Pressure [Le ft Upper Arm] 155/86 H 142/82 H Pulse Oximetry 100 98 Oxygen Delivery Me thod Room Air Room Air Documenting provider has reviewed patient's vital signs: yes Course Vital Signs Vital signs: Initial Vital Signs Temperature 97.3 F L 08/01/23 01:12 Temperature Source Temporal Artery Scan 08/01/23 01:12 Pulse Rate 75 08/01/23 01:12 Respiratory Rate 16 08/01/23 01:12 Blood Pressure 155/86 H 08/01/23 01:12 Blood Pressure Mean 109 H 08/01/23 01:12 Blood Pressure Position Supine 08/01/23 01:12 Pulse Oximetry 100 08/01/23 01:12 Oxygen Delivery Method Room Air 08/01/23 01:12 Vital Signs Temperature 97.3 F L 08/01/23 01:12 Pulse Rate 75 08/01/23 01:12 Respiratory Rate 16 08/01/23 01:12 Blood Pressure 155/86 H 08/01/23 01:12 Pulse Oximetry 100 08/01/23 01:12 Oxygen Delivery Method Room Air 08/01/23 01:12 Temperature 97.3 F L 08/01/23 01:12 Pulse Rate 74 08/01/23 03:31 Respiratory Rate 16 08/01/23 03:31 Blood Pressure 138/78 08/01/23 03:31 Pulse Oximetry 98 08/01/23 03:31 Oxygen Delivery Method Room Air 08/01/23 03:31 Medications Administered Medications: Discontinued Medications Generic Name Dose Route Start Last Admin Trade Name Sherry PRN Reason Stop Dose Admin Nifedipine 30 mg 08/01/23 03:04 08/01/23 03:30 Nifedipine 30 Mg Tab.Er.24 PO 08/01/23 03:05 30 mg ONCE ONE Administration Medical Decision Making MDM Narrative Medical decision making narrative: Will monitor and check preeclampsia labs as this is primary concern. Otherwise appears asymptomatic. Monitored for time in the emergency department without event. Labs are reassuring and blood pressure improved -- last recorded at 138/78 Did discuss this case with OB on-call who was one of the care providers during hospitalization. Recommendations are to initiate nifedipine. Was given a dose here prior to departure. Fibrinogen level was pending at time of discharge and did come back mildly elevated. See patient discharge plan further discussion Lab Data Lab results reviewed: Yes I reviewed the patient's lab results Labs: Lab Results 08/01/23 08/01/23 08/01/23 Range/Units 02:00 02:00 02:00 WBC 10.42 (4.50-11.00) K/uL RBC 3.31 L (4.00-5.20) m/uL Hgb 9.6 L (12.0-16.0) gm/dL Hct 29.6 L (33.0-51.0) % MCV 89 (80-100) fL MCH 29 (26-34) pg MCHC 32 (32-36) gm/dL RDW Coeff of Memo 13.0 (11.5-15.5) % Plt Count 197 (140-440) K/uL Neut % (Auto) 62.9 (42.0-72.0) % Lymph % (Auto) 27.4 (20-44) % [place] % (Auto) 5.8 (0.0-11.0) % Eos % (Auto) 2.2 (0.0-7.0) % Baso % (Auto) 0.5 (0.0-3.0) % Neut # (Auto) 6.56 (1.7-7.0) K/uL Lymph # (Auto) 2.86 (0.90-2.90) K/uL [place] # (Auto) 0.60 (0.00-0.90) K/UL Eos # (Auto) 0.23 (0.00-0.50) K/uL Baso # (Auto) 0.05 (0.00-0.30) K/uL Abs Immat Gran (auto) 0.12 (0.00-0.30) K/uL Imm/Tot Granulo (auto) 1.2 % Fibrinogen 543 H (200-450) mg/dL Sodium 136 (135-149) mmol/L Potassium 3.4 L (3.6-5.1) mmol/L Chloride 112 (96-114) mmol/L Carbon Dioxide 21 (20-32) mmol/L Anion Gap 3 L (7-15) mEq/L BUN 11 (5-24) mg/dL Creatinine 0.5 (0.5-1.5) mg/dL Estimated Creat Clear 144.65 Estimated GFR 131 ml/min Glucose 78 (60-115) mg/dL Uric Acid Cancelled 4.9 Calcium 8.2 L (8.4-10.6) mg/dL Magnesium 1.8 Cancelled (1.5-2.6) mg/dL Total Bilirubin 0.2 (0.1-1.5) mg/dL Direct Bilirubin (0.0-0.5) mg/dL AST (12-35) U/L ALT (4-35) U/L Alkaline Phosphatase (40-150) U/L Lactate Dehydrogenase Total Protein (6.0-8.3) g/dL Albumin (3.3-5.0) g/dL Urine Color (Yellow) Urine Appearance (Clear) Urine pH (5.0-8.5) Ur Specific [place] (1.000-1.030) Urine Protein (Negative) Urine Glucose (UA) (Negative) Urine Ketones (Negative) Urine Blood (Negative) Urine Nitrite (Negative) Urine Bilirubin (Negative) Urine Urobilinogen (0.2-1.0) Ur Leukocyte Esterase (Negative) Urine RBC (0-2) Urine WBC (0-5) Ur Squamous Epith Cells (None-Few) Urine Bacteria (None) 08/01/23 08/01/23 08/01/23 Range/Units 02:00 02:00 02:00 WBC (4.50-11.00) K/uL RBC (4.00-5.20) m/uL Hgb (12.0-16.0) gm/dL Hct (33.0-51.0) % MCV (80-100) fL MCH (26-34) pg MCHC (32-36) gm/dL RDW Coeff of Memo (11.5-15.5) % Plt Count (140-440) K/uL Neut % (Auto) (42.0-72.0) % Lymph % (Auto) (20-44) % [place] % (Auto) (0.0-11.0) % Eos % (Auto) (0.0-7.0) % Baso % (Auto) (0.0-3.0) % Neut # (Auto) (1.7-7.0) K/uL Lymph # (Auto) (0.90-2.90) K/uL [place] # (Auto) (0.00-0.90) K/UL Eos # (Auto) (0.00-0.50) K/uL Baso # (Auto) (0.00-0.30) K/uL Abs Immat Gran (auto) (0.00-0.30) K/uL Imm/Tot Granulo (auto) % Fibrinogen (200-450) mg/dL Sodium (135-149) mmol/L Potassium (3.6-5.1) mmol/L Chloride (96-114) mmol/L Carbon Dioxide (20-32) mmol/L Anion Gap (7-15) mEq/L BUN (5-24) mg/dL Creatinine (0.5-1.5) mg/dL Estimated Creat Clear Estimated GFR ml/min Glucose (60-115) mg/dL Uric Acid Calcium (8.4-10.6) mg/dL Magnesium (1.5-2.6) mg/dL Total Bilirubin Cancelled (0.1-1.5) mg/dL Direct Bilirubin 0.0 Cancelled (0.0-0.5) mg/dL AST 31 Cancelled (12-35) U/L ALT 18 (4-35) U/L Alkaline Phosphatase (40-150) U/L Lactate Dehydrogenase Total Protein (6.0-8.3) g/dL Albumin (3.3-5.0) g/dL Urine Color (Yellow) Urine Appearance (Clear) Urine pH (5.0-8.5) Ur Specific [place] (1.000-1.030) Urine Protein (Negative) Urine Glucose (UA) (Negative) Urine Ketones (Negative) Urine Blood (Negative) Urine Nitrite (Negative) Urine Bilirubin (Negative) Urine Urobilinogen (0.2-1.0) Ur Leukocyte Esterase (Negative) Urine RBC (0-2) Urine WBC (0-5) Ur Squamous Epith Cells (None-Few) Urine Bacteria (None) 08/01/23 08/01/23 08/01/23 Range/Units 02:00 02:00 02:00 WBC (4.50-11.00) K/uL RBC (4.00-5.20) m/uL Hgb (12.0-16.0) gm/dL Hct (33.0-51.0) % MCV (80-100) fL MCH (26-34) pg MCHC (32-36) gm/dL RDW Coeff of Memo (11.5-15.5) % Plt Count (140-440) K/uL Neut % (Auto) (42.0-72.0) % Lymph % (Auto) (20-44) % [place] % (Auto) (0.0-11.0) % Eos % (Auto) (0.0-7.0) % Baso % (Auto) (0.0-3.0) % Neut # (Auto) (1.7-7.0) K/uL Lymph # (Auto) (0.90-2.90) K/uL [place] # (Auto) (0.00-0.90) K/UL Eos # (Auto) (0.00-0.50) K/uL Baso # (Auto) (0.00-0.30) K/uL Abs Immat Gran (auto) (0.00-0.30) K/uL Imm/Tot Granulo (auto) % Fibrinogen (200-450) mg/dL Sodium (135-149) mmol/L Potassium (3.6-5.1) mmol/L Chloride (96-114) mmol/L Carbon Dioxide (20-32) mmol/L Anion Gap (7-15) mEq/L BUN (5-24) mg/dL Creatinine (0.5-1.5) mg/dL Estimated Creat Clear Estimated GFR ml/min Glucose (60-115) mg/dL Uric Acid Calcium (8.4-10.6) mg/dL Magnesium (1.5-2.6) mg/dL Total Bilirubin (0.1-1.5) mg/dL Direct Bilirubin (0.0-0.5) mg/dL AST (12-35) U/L ALT Cancelled (4-35) U/L Alkaline Phosphatase 110 Cancelled (40-150) U/L Lactate Dehydrogenase Cancelled 245 Total Protein 6.1 (6.0-8.3) g/dL Albumin (3.3-5.0) g/dL Urine Color (Yellow) Urine Appearance (Clear) Urine pH (5.0-8.5) Ur Specific [place] (1.000-1.030) Urine Protein (Negative) Urine Glucose (UA) (Negative) Urine Ketones (Negative) Urine Blood (Negative) Urine Nitrite (Negative) Urine Bilirubin (Negative) Urine Urobilinogen (0.2-1.0) Ur Leukocyte Esterase (Negative) Urine RBC (0-2) Urine WBC (0-5) Ur Squamous Epith Cells (None-Few) Urine Bacteria (None) 08/01/23 08/01/23 Range/Units 02:00 02:00 WBC (4.50-11.00) K/uL RBC (4.00-5.20) m/uL Hgb (12.0-16.0) gm/dL Hct (33.0-51.0) % MCV (80-100) fL MCH (26-34) pg MCHC (32-36) gm/dL RDW Coeff of Memo (11.5-15.5) % Plt Count (140-440) K/uL Neut % (Auto) (42.0-72.0) % Lymph % (Auto) (20-44) % [place] % (Auto) (0.0-11.0) % Eos % (Auto) (0.0-7.0) % Baso % (Auto) (0.0-3.0) % Neut # (Auto) (1.7-7.0) K/uL Lymph # (Auto) (0.90-2.90) K/uL [place] # (Auto) (0.00-0.90) K/UL Eos # (Auto) (0.00-0.50) K/uL Baso # (Auto) (0.00-0.30) K/uL Abs Immat Gran (auto) (0.00-0.30) K/uL Imm/Tot Granulo (auto) % Fibrinogen (200-450) mg/dL Sodium (135-149) mmol/L Potassium (3.6-5.1) mmol/L Chloride (96-114) mmol/L Carbon Dioxide (20-32) mmol/L Anion Gap (7-15) mEq/L BUN (5-24) mg/dL Creatinine (0.5-1.5) mg/dL Estimated Creat Clear Estimated GFR ml/min Glucose (60-115) mg/dL Uric Acid Calcium (8.4-10.6) mg/dL Magnesium (1.5-2.6) mg/dL Total Bilirubin (0.1-1.5) mg/dL Direct Bilirubin (0.0-0.5) mg/dL AST (12-35) U/L ALT (4-35) U/L Alkaline Phosphatase (40-150) U/L Lactate Dehydrogenase Total Protein Cancelled (6.0-8.3) g/dL Albumin 3.2 L Cancelled (3.3-5.0) g/dL Urine Color Red A (Yellow) Urine Appearance Turbid A (Clear) Urine pH 7.0 (5.0-8.5) Ur Specific [place] 1.010 (1.000-1.030) Urine Protein 1+ A (Negative) Urine Glucose (UA) Negative (Negative) Urine Ketones Negative (Negative) Urine Blood 3+ A (Negative) Urine Nitrite Negative (Negative) Urine Bilirubin Negative (Negative) Urine Urobilinogen 0.2 (0.2-1.0) Ur Leukocyte Esterase 1+ A (Negative) Urine RBC 5-10 A (0-2) Urine WBC 0-2 (0-5) Ur Squamous Epith Cells Few (None-Few) Urine Bacteria None (None) Discharge Plan Discharge Clinical Impression: High blood pressure Patient Disposition: Home w/ Parent or Adult Condition: Improved Additional Instructions: Stay well-hydrated. Recommendations are to take nifedipine 30 mg daily. Report persistent blood pressures over 140 systolic. Otherwise be seen for new weakness, increasing headache, repeated vomiting, shortness of breath, visual changes. Please follow-up next week with Ob-ventilation worker Prescriptions: New nifedipine 30 mg tablet extended release 30 mg PO DAILY Qty: 30 0RF No Action cetirizine 10 mg tablet 10 mg PO .Daily as needed PRN acetaminophen 500 mg Tablet 1,000 mg PO Q6H PRN (Reason: pain/fever) 30 Days Qty: 60 0RF docusate sodium 100 mg Capsule 100 mg PO DAILY 30 Days Qty: 30 0RF ibuprofen 600 mg Tablet 600 mg PO Q6H PRN (Reason: Pain) 30 Days Qty: 60 0RF Lanolin (HPA) 100 % Cream 1 applic topical Q1H PRNQty: 21 0RF Poly-Iron 150 Forte 150-25-1 mg-mcg-mg Capsule 1 cap PO Q OTHER DAY 30 Days Qty: 15 0RF simethicone 80 mg Tablet,Chewable 80 - 160 mg PO Q4H PRN (Reason: Gas) 30 Days Qty: 60 0RF oxycodone 5 mg Tablet 5 mg PO Q6H PRN (Reason: Pain) 14 Days Qty: 20 0RF Follow Up/Referrals: Paula Huang PA-C [Primary Care Provider] - [facility]one [facility] Info Inst[facility]
[2023-08-01 02:10] LABS: Basophils Absolute Auto 0.05 K/uL (0.00-0.30); Basophils Percent Auto 0.5 % (0.0-3.0); Eosinophils Absolute Auto 0.23 K/uL (0.00-0.50); Eosinophils Percent Auto 2.2 % (0.0-7.0); Hematocrit 29.6 % (33.0-51.0); Hemoglobin* 9.6 gm/dL (12.0-16.0); Immature Granulocytes Abs Auto 0.12 K/uL (0.00-0.30); Immature Granulocytes Pct Auto 1.2 %; Lymphocytes Absolute Auto 2.86 K/uL (0.90-2.90); Lymphocytes Percent Auto 27.4 % (20-44); Mean Corpuscular HGB Conc 32 gm/dL (32-36); Mean Corpuscular Hemoglobin 29 pg (26-34); Mean Corpuscular Volume 89 fL (80-100); Monocytes Percent Auto 5.8 % (0.0-11.0); Neutrophils Absolute Auto 6.56 K/uL (1.7-7.0); Neutrophils Percent Auto 62.9 % (42.0-72.0); Platelet Count* 197 K/uL (140-440); Red Blood Count 3.31 m/uL (4.00-5.20); White Blood Count* 10.42 K/uL (4.50-11.00)
[2023-08-01 02:11] LABS: Appearance Urine Turbid (Clear); Bilirubin Urine Negative (Negative); Blood Urine 3+ (Negative); Color Urine Red (Yellow); Glucose Urine Negative (Negative); Ketones Urine Negative (Negative); Leukocyte Esterase Urine 1+ (Negative); Nitrite Urine Negative (Negative); Protein Urine 1+ (Negative); Slide Review Reflex No; Urobilinogen Urine 0.2 (0.2-1.0)
[2023-08-01 02:18] VITALS: BP 142/82; PULSE 70; RESP 16; O2SAT 98
[2023-08-01 02:27] LABS: Albumin* 3.2 g/dL (3.3-5.0); Chloride* 112 mmol/L (96-114)
[2023-08-01 02:28] LABS: Potassium* 3.4 mmol/L (3.6-5.1); Sodium* 136 mmol/L (135-149)
[2023-08-01 02:30] LABS: Anion Gap 3 mEq/L (7-15); Bilirubin Total* 0.2 mg/dL (0.1-1.5); Carbon Dioxide* 21 mmol/L (20-32); Creatinine* 0.5 mg/dL (0.5-1.5); Est. Creatinine Clearance* 144.65; Estimated Glomerular Filt Rate 131 ml/min; Fibrinogen* 543 mg/dL (200-450)
[2023-08-01 02:31] LABS: Alanine Aminotransferase* 18 U/L (4-35); Alkaline Phosphatase* 110 U/L (40-150); Aspartate Amino Transferase* 31 U/L (12-35); Blood Urea Nitrogen* 11 mg/dL (5-24); Calcium* 8.2 mg/dL (8.4-10.6); Glucose* 78 mg/dL (60-115); Lactate Dehydrogenase* 245 U/L (120-246); Magnesium* 1.8 mg/dL (1.5-2.6); Total Protein* 6.1 g/dL (6.0-8.3); Uric Acid* 4.9 mg/dL (2.2-8.4)
[2023-08-01 02:33] LABS: Squamous Epithelial Cell Urine Few (None-Few); WBC Urine 0-2 (0-5)
[2023-08-01] MEDS: NIFEdipine 30 MG TAB.ER.24 PO (03:30)
[2023-08-01 03:31] VITALS: BP 138/78; PULSE 74; RESP 16; O2SAT 98
== END 2023-08-01 03:32 | disposition home or self-care (01) ==
PROVIDERS: Emergency Provider Family Medicine; PCP Physician Assistant Medical
DX: O13.5 Gestational [pregnancy-induced] hypertension without significant proteinuria, complicating the puerperium (principal)
CPT/HCPCS: 36415; 80048; 80076; 81001; 83615; 83735; 84550; 85025; 85384; 87086; 99283; 99284; A9270

== ENCOUNTER 2023-10-13 14:34 | Outpatient (CLI) | payer MEDICAID, SELFPAY | END 2023-10-13 14:35 | disposition home or self-care (01) | LOC: NFLDREF 14:35 | PROVIDERS: PCP Physician Assistant Medical; Visit Provider Registered Nurse | DX: F41.9 Anxiety disorder, unspecified (principal) | CPT/HCPCS: 84443 ==

== ENCOUNTER 2024-05-15 11:08 | Outpatient (CLI) | payer MEDICAID, SELFPAY | END 2024-05-15 11:09 | disposition home or self-care (01) | PROVIDERS: PCP Physician Assistant Medical; Visit Provider Physician Assistant Medical | DX: E78.1 Pure hyperglyceridemia (principal); R61 Generalized hyperhidrosis | CPT/HCPCS: 80053; 82306; 82607; 84443 ==

== ENCOUNTER 2024-05-24 13:44 | Outpatient (CLI) | payer MEDICAID, SELFPAY | END 2024-05-24 13:45 | disposition home or self-care (01) | LOC: US 13:45 | PROVIDERS: PCP Physician Assistant Medical; Visit Provider Physician Assistant Medical | DX: R59.0 Localized enlarged lymph nodes (principal) | CPT/HCPCS: 76536 ==